=== PATIENT | female | born 1945 | race Caucasian/White ===

== ENCOUNTER 2021-09-15 14:49 | Emergency (ER) | payer MEDICARE, MEDICAID ==
[~2021-09-15] VITALS: Ht 162.6 cm; Wt 72.6 kg
--- NOTE | 2021-09-15 14:55 | NUR ---
MD BRUNSON AT BEDSIDE FOR ASSESS. PT HAS CONFIRMED RIGHT HIP FRACTURE. AAOX1, HX OF ALZHEIMER'S. VSS. NAD NOTED. WILL CONT TO MONITOR PT.
[2021-09-15 14:56] VITALS: BP_SYST 92
[2021-09-15] MEDS ORDERED: LORA-259 PO (15:05)
[2021-09-15] MEDS ORDERED: HYDR50TA61 PO (15:07)
[2021-09-15] MEDS ORDERED: SER25 PO (15:08)
--- NOTE | 2021-09-15 15:09 | NUR ---
Medication reconciliation completed with information provided by tk. Any prior medication reconciliation on file was reviewed and corrected.
[2021-09-15] MEDS ORDERED: MORPHINE 4 MG INJ. 4 MG/ML VIAL IVP ONE ×2 (15:45→20:00)
[2021-09-15 16:43] LABS: BASOPHILS # (AUTO) 0.1 K/uL (0.0-0.2); BASOPHILS % (AUTO) 0.9 % (0.0-2.0); EOSINOPHILS # (AUTO) 0.3 K/uL (0.0-0.4); EOSINOPHILS % (AUTO) 4.1 % (0.0-4.0); HEMATOCRIT 33.7 % (36-48); HEMOGLOBIN 11.3 g/dL (12.0-16.0); LYMPHOCYTES # (AUTO) 0.9 K/uL (1.0-5.5); LYMPHOCYTES % (AUTO) 12.6 % (20.5-51.5); MEAN CORPUSCULAR HEMOGLOBIN 32 pg (27-31); MEAN CORPUSCULAR HGB CONC 33 % (32-36); MEAN CORPUSCULAR VOLUME 95 fL (79.0-98.0); MONOCYTES # (AUTO) 0.8 K/uL (0.0-1.0); MONOCYTES % (AUTO) 10.6 % (1.7-9.3); NEUTROPHILS # (AUTO) 5.1 K/uL (1.8-7.7); NEUTROPHILS % (AUTO) 71.8 % (40.0-70.0); PLATELET COUNT (AUTO) 147 K/uL (130-430); RED BLOOD CELL COUNT(AUTO) 3.54 MIL/uL (4.2-6.2); RED CELL DISTRIBUTION WIDTH 15.3 % (9.0-15.0); WHITE BLOOD COUNT (AUTO) 7.2 K/uL (4.8-10.8)
[2021-09-15 16:46] LABS: ANION GAP 7 (5-15); CHLORIDE 108 mmol/L (98-107); CREATININE 0.72 mg/dL (0.55-1.30); GLUCOSE 138 mg/dL (70-99); POTASSIUM 3.5 mmol/L (3.5-5.1); SODIUM SERUM 143 mmol/L (136-145); UREA NITROGEN, BLOOD 29 mg/dL (8-21)
[2021-09-15 16:50] LABS: INR 0.9 (0.8-1.2); PROTHROMBIN TIME 9.5 SECS (9.5-12.5)
[2021-09-15 16:52] LABS: ALANINE AMINOTRANSFERASE 13 U/L (12-78); ALBUMIN 2.3 g/dL (3.4-4.8); ASPARTATE AMINOTRANSFERASE 18 U/L (10-37); TOTAL BILIRUBIN 0.3 mg/dL (0.0-1.0)
--- NOTE | 2021-09-15 19:35 | NUR ---
ASSUME CARE OF THIS PATIENT HERE FROM [facility] DUE TO S/P FALL AND SUSTAIN RT HIP FRACTURE. THERE IS MILD SHORTENING NOTED ON THE RT HIP. NO OTHER POSSIBLE OBVIOUS TRAUUMA NOTED. POSITIONED FOR COMFORT. CLEANED AND WILL INSERT FAUSTIN CATH.
--- NOTE | 2021-09-15 19:44 | NUR ---
ASSUME CARE OF THIS PATIENT, AWAKE AND ALERT ACTING TO NORMAL BASELINE, NOTED PAIN TO LT HIP. PER REPORT RECEIVED PT HERE FOR FOR S/P FALL. FAUSTIN CATH INSERTED FR 16 USING ASEPTIC TECHNIQUE, URINE SPECIMEN COLLECTED,LABELED AND SENT TO LAB.
[2021-09-15 19:48] LABS: BILIRUBIN,URINE NEGATIVE (NEGATIVE); BLOOD, URINE NEGATIVE (NEGATIVE); CLARITY/URINE HAZY (CLEAR); COLOR,URINE YELLOW (YELLOW); GLUCOSE,URINE NEGATIVE (NEGATIVE); KETONES,URINE NEGATIVE (NEGATIVE); LEUKOCYTE ESTERASE ,URINE TRACE (NEGATIVE); NITRITE, URINE POSITIVE (NEGATIVE); PROTEIN URINE TRACE (NEGATIVE)
[2021-09-15 19:55] LABS: BACTERIA,URINE MANY /HPF (None Seen)
--- NOTE | 2021-09-15 20:21 | NUR ---
[facility] called back, spoke with Amie regarding patient's VSS. ETA is 2030 hrs
--- NOTE | 2021-09-15 20:39 | NUR ---
REPORT NAYELI TO JAMES CAPUTO FROM [facility]
[2021-09-15 21:16] VITALS: BP_SYST 163
--- NOTE | 2021-09-15 21:18 | NUR ---
TRANSFER PT VIA [facility] ACCOMPANIED BY [facility] TRANSFER. PT AWAKE AND ALERT AND TO HER BASELINE UPON TRANSFER. REPORT GIVEN TO BRAYAN FROM [facility].
== END 2021-09-15 21:17 | disposition short-term general hospital (02) ==
LOC: SED 14:49
DX: S72.141A Displaced intertrochanteric fracture of right femur, initial encounter for closed fracture (principal); M97.01XA Periprosthetic fracture around internal prosthetic right hip joint, initial encounter; Z79.899 Other long term (current) drug therapy; Z20.822 Contact with and (suspected) exposure to COVID-19; W19.XXXA Unspecified fall, initial encounter; Y93.89 Activity, other specified; Y92.89 Other specified places as the place of occurrence of the external cause; Y99.8 Other external cause status
CPT/HCPCS: 99285; 96374; 71045; 87426; 80053; 81000; 82550; 85025; 85610; 85730; 87086; 36415; 93005; 73502; 96376; J2270

== ENCOUNTER 2022-08-12 06:28 | Emergency (ER) | payer OTHER, MEDICAID ==
[~2022-08-12] VITALS: Ht 170.2 cm; Wt 62.6 kg
[2022-08-12 06:28] VITALS: BP_SYST 142; PULSE 61; RESP 19; TEMP 98; O2SAT 98
[~2022-08-12 06:28] MED LIST: HYDR50TA61 PO; LORA-259 PO; SER25 PO
[2022-08-12 07:13] LABS: BASOPHILS # (AUTO) 0.1 K/uL (0.0-0.2); EOSINOPHILS # (AUTO) 0.2 K/uL (0.0-0.4); EOSINOPHILS % (AUTO) 2.6 % (0.0-4.0); HEMOGLOBIN 13.2 g/dL (12.0-16.0); LYMPHOCYTES # (AUTO) 1.6 K/uL (1.0-5.5); LYMPHOCYTES % (AUTO) 24.2 % (20.5-51.5); MEAN CORPUSCULAR HEMOGLOBIN 32 pg (27-31); MEAN CORPUSCULAR HGB CONC 32 % (32-36); MEAN CORPUSCULAR VOLUME 99 fL (79.0-98.0); MONOCYTES # (AUTO) 0.5 K/uL (0.0-1.0); MONOCYTES % (AUTO) 7.6 % (1.7-9.3); NEUTROPHILS # (AUTO) 4.2 K/uL (1.8-7.7); NEUTROPHILS % (AUTO) 64.6 % (40.0-70.0); PLATELET COUNT (AUTO) 181 K/uL (130-430); RED BLOOD CELL COUNT(AUTO) 4.14 MIL/uL (4.2-6.2); RED CELL DISTRIBUTION WIDTH 15.6 % (9.0-15.0); WHITE BLOOD COUNT (AUTO) 6.5 K/uL (4.8-10.8)
[2022-08-12 07:21] LABS: ACETONE, SERUM NEGATIVE (NEGATIVE)
[2022-08-12 07:22] LABS: ANION GAP 8 (5-15); CALCIUM 8.3 mg/dL (8.4-11.0); CHLORIDE 105 mmol/L (98-107); CREATININE 0.64 mg/dL (0.55-1.30); GLUCOSE 90 mg/dL (74-106); UREA NITROGEN, BLOOD 20 mg/dL (8-21)
[2022-08-12 07:27] LABS: ALANINE AMINOTRANSFERASE 15 U/L (12-78); ALBUMIN 3.2 g/dL (3.4-4.8); ASPARTATE AMINOTRANSFERASE 20 U/L (10-37); TOTAL BILIRUBIN 0.5 mg/dL (0.0-1.0)
[2022-08-12] MEDS ORDERED: LORazepam 2 MG/ML VIAL IM ONE ×2 (09:00)
[2022-08-12] MEDS ORDERED: IBUP-2018 PO (09:17)
[2022-08-12 12:09] VITALS: BP_SYST 130; PULSE 73; RESP 15; O2SAT 98
== END 2022-08-12 10:53 ==
LOC: SED 06:28
DX: S05.11XA Contusion of eyeball and orbital tissues, right eye, initial encounter (principal); I10 Essential (primary) hypertension; Z79.899 Other long term (current) drug therapy; X58.XXXA Exposure to other specified factors, initial encounter; Y93.89 Activity, other specified; Y92.89 Other specified places as the place of occurrence of the external cause; Y99.8 Other external cause status
CPT/HCPCS: 99285; 70450; 80053; 82009; 82550; 85025; 85610; 85730; 84484; 36415; 93005; 72125; 96372; 70480; 76376; J2060